=== PATIENT | female | born 1945 | race Caucasian/White ===

== ENCOUNTER 2024-06-30 07:48 | Day surgery (SDC) | payer MEDICARE, SELFPAY ==
[2024-06-30] MEDS: Tropicam./Phenyleph. (1/2.5%) 5 ML BTL OD ×3 (08:14→08:26)
[2024-06-30 08:15] VITALS: BP 148/72; PULSE 66; RESP 18; TEMP 36.3; O2SAT 97
--- NOTE | 2024-06-30 09:21 | ANES.PREOP_ITS ---
General Info Date of Service Date Performed: 06/30/24 Height: 5 ft 8 in Weight: 88.7 kg Body Mass Index (BMI): 29.7 Surgical Procedure: Operation Date: 06/30/24 10:40 Proposed Procedure Side Surgeon p Cataract Extraction with IOL Implant Right Hay Osorio MD Actual Procedure Side Surgeon p Cataract Extraction with IOL Implant Right Hay Osorio MD Pre-Op Diagnosis Post-Op Diagnosis CATARACT OD CATARACT OD Meds Allergies and Home Medications Allergies Allergy/AdvReac Type Severity Reaction Status Date / Time animal dander Allergy Intermediate Other (See Verified 06/28/24 15:04 Comment) house dust Allergy Intermediate Other (See Verified 06/28/24 15:04 Comment) mold Allergy Intermediate Other (See Verified 06/28/24 15:04 Comment) nitrofurantoin (From Allergy Intermediate Other (See Verified 06/28/24 15:04 Macrodantin) Comment) ragweed pollen Allergy Intermediate Other (See Verified 06/28/24 15:04 Comment) wool Allergy Other (See Verified 06/28/24 15:04 Comment) Home Medication ?Medication ?Instructions ?Recorded cephalexin 500 mg capsule 500 mg PO DIRECTED 06/28/24 ferrous sulfate 325 mg (65 mg 325 mg PO DAILY 06/28/24 iron) tablet (Presley-Time) losartan 50 mg tablet 50 mg PO DAILY 06/28/24 meclizine 25 mg tablet 25 mg PO DIRECTED 06/28/24 melatonin 5 mg tablet 5 mg PO HS PRN 06/28/24 omeprazole 20 mg capsule,delayed 20 mg PO DAILY 06/28/24 release simvastatin 20 mg tablet 20 mg PO QHS 06/28/24 Current Visit Medications: Current Medications Generic Name Dose Route Start Last Admin Trade Name Freq PRN Reason Stop Dose Admin Acetaminophen 1,000 mg 06/30/24 07:00 Acetaminophen 500 Mg Tab PO 07/30/24 06:59 Q4H PRN PRN Balanced Salt Solution 500 ml 06/30/24 07:00 06/30/24 08:48 Balanced Salt Soln.-Plus 500 Ml Bag OP 07/30/24 06:59 500 ml DIRECTED DAMON Administration Miscellaneous Medication 0 ml 06/30/24 07:00 06/30/24 08:54 Prednisolone 1%, Moxifloxacin 0.5%, Bromfenac 0.09% 5.6ml Btl OD 07/30/24 06:59 2 drp DIRECTED DAMON Administration Miscellaneous Medication 0 ml 06/30/24 07:00 06/30/24 08:26 Tropicam./Phenyleph. (1/2.5%) 5 Ml Btl OD 07/30/24 06:59 1 drp DIRECTED DAMON Administration Tetracaine HCl 0 ml 06/30/24 07:00 06/30/24 08:43 Tetracaine 0.5% 4 Ml Btl OD 07/30/24 06:59 4 drp DIRECTED DAMON Administration PFSH Active Problems Active Problems: Problem Status Onset Code Posterior subcapsular age-related cataract, right eye Acute H25.041 Nuclear age-related cataract, right eye Acute H25.11 Medical History Medical History Disability of walking states she can stand and pivot herself to chair or toilet Syringomyelia Recurrent UTI Polyp of colon Osteoarthritis of knee Microcytic hypochromic anemia Incontinence of urine HLD (hyperlipidemia) [place]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 states its pretty well healed up. States she has a nurses aid that comes around 1x/wk and showers her and states it was healing up well. Surgical History Surgical History Hx of tubal ligation Hx of appendectomy Hx of total knee replacement Tobacco Smoking/Tobacco Use Status: Former Tobacco Use Alcohol Alcohol Intake: never Substance Use Substance use: Never Substance use type: does not use Vital Signs and Lab Results Vital Signs Most Recent Vital Signs in EMR: Most Recent Vital Signs Temp Pulse Resp BP Pulse Ox 36.3 C L 66 18 148/72 H 97 06/30/24 08:15 06/30/24 08:15 06/30/24 08:15 06/30/24 08:15 06/30/24 08:15 Lab Results Blood Type / Crossmatch: No Data to Display Complete Blood Count: No Data to Display Complete Metabolic Panel: No Data to Display Liver Function Panel: No Data to Display Coagulation Panel: No Data to Display Cardiac Panel: No Data to Display Arterial Blood Gas: No Data to Display Venous Blood Gas: No Data to Display Pancreas Panel: No Data to Display Thyroid Panel: No Data to Display Infectious Disease: No Data to Display Blood Cultures: No Data to Display Toxicology Panel: No Data to Display Anesthesia Assessment and Plan Anesthesia History Personal History: No History of Anesthesia Complications Family History: No Family History of Anesthesia Complications Exercise Tolerance Exercise Tolerance: Metabolic Equivalents>4 Pertinent Negatives Pertinent Negatives: No Symptoms of GERD, No Major Cardiovascular Symptoms or Complaints and No Major Pulmonary Symptoms or Complaints Cardiac & Pulmonary Exam Cardiac Exam: Normal S1/S2 Heart Sounds Pulmonary Exam: Clear Bilateral Breath Sounds Implantable Cardiac Device Does patient have a Pacemaker or an ICD?: No Airway Exam Known Difficult Airway: No Mallampati Class: 2 Mouth Opening: Normal (> 3cm) Thyromental Distance: Greater than 3 cm Neck Range of Motion: Full ROM Neck Circumference: Normal Teeth Condition: Normal Dentition (Lower) and Removable Dentures/Plates Upper ASA Classification ASA Score: ASA 3 Emergency Case?: No NPO Status NPO Status: NPO Clears >2 hours, Solids >8 hours Anesthesia Plan Resuscitation Status: Full Code Anesthesia Technique: MAC Anesthesia Airway Planned: Natural Airway Monitors Used: Standard Monitors
[2024-06-30] MEDS: Tetracaine 0.5% 4 ML BTL OD (09:24)
[2024-06-30] MEDS: Povidone-Iodine Ophth 30 ML BTL (09:24)
[2024-06-30 09:27] VITALS: BMI 29.7
[2024-06-30] MEDS: Balanced Salt Soln.-PLUS 500 ML BAG OP (09:31)
[2024-06-30] MEDS: Duovisc Viscoelastic System EACH 1 EACH (09:31)
[2024-06-30] MEDS: Lidocaine 1% Pres-Free 5 ML VIAL (09:35)
[2024-06-30] MEDS: Prednisolone 1%, Moxifloxacin 0.5%, Bromfenac 0.09% 5.6ML BTL OD (09:43)
[2024-06-30 09:57] VITALS: BP 141/85; PULSE 66; RESP 16; TEMP 36.1; O2SAT 99
--- NOTE | 2024-06-30 09:57 | W.PM.DSUDISC ---
Date of service: 06/30/24 Time of Service: 09:57 Discharge Plan Disposition Patient Disposition: Home Discharge Details Attending Provider: Hay Osorio Primary Care Provider: Mak Cramer Home Meds and New Rx's Prescriptions: No Action cephalexin 500 mg capsule 500 mg PO DIRECTED ferrous sulfate [Presley-Time] 325 mg (65 mg iron) tablet 325 mg PO DAILY losartan 50 mg tablet 50 mg PO DAILY meclizine 25 mg tablet 25 mg PO DIRECTED melatonin 5 mg tablet 5 mg PO HS PRN omeprazole 20 mg capsule,delayed release(DR/EC) 20 mg PO DAILY simvastatin 20 mg tablet 20 mg PO QHS Discharge Instructions Stand Alone Forms: DSU Post-Op CataractRani (DSU) Discharge Orders Discharge Orders: Discharge Order (Routine); Ordered 06/30/24 Ordered By: Hay Osorio DS: Diagnosis Discharge Diagnosis (1) Posterior subcapsular age-related cataract, right eye: Status: Resolved (2) Nuclear age-related cataract, right eye: Status: Resolved
--- NOTE | 2024-06-30 09:58 | W.PM.OP ---
Operative Note Operative Note PRE-OP DIAGNOSIS: Nuclear/posterior subcapsular cataract, right eye POST-OP DIAGNOSIS: same PROCEDURE: Cataract extraction using phacoemulsification with intraocular lens implant, right eye SURGEON: Hay Osorio ANESTHESIA TYPE: Local By Surgeon and MAC Refer to Anesthesia Record ESTIMATED BLOOD LOSS: 0 PATHOLOGY: none sent COMPLICATIONS: None Patient was transported to: same day Patient's condition: stable Implants: Reji Clareon [id number] Indications: Progressive decreased vision due to cataract, right eye Procedure Description: CATARACT SURGERY OPERATIVE REPORT PREOPERATIVE DIAGNOSIS: Nuclear/posterior subcapsular cataract, right eye POSTOPERATIVE DIAGNOSIS: Same OPERATION: Cataract extraction using phacoemulsification with posterior chamber intraocular lens implant, right eye. IOL: IOL Testing And Regulating Technician/Model: Reji Clareon [id number] IOL Power: + 18.0 diopters IOL Serial Number: [id number] Optic Diameter: 6.0mm Haptic/Overall Diameter: 13.0mm PHACO INFO: Reji OpenExchangeurion Vision System with OZil and Active Fluidics Cumulative Dispersed Energy (CDE): 20.40 seconds SURGEON: Hay Oosrio MD, JOYCE ANESTHESIA: Monitored Anesthesia Care (MAC), with local sub-tenon's anesthetic infiltration COMPLICATIONS: None SPECIMENS: None INDICATIONS FOR PROCEDURE: The patient is a 79-year-old lady with history of diminished visual acuity in her right eye secondary to the development of nuclear/posterior subcapsular cataract. She is significant Daniel symptomatic that she desires cataract surgery and attempt to improve and maximize her vision. See office notes for detailed information. PROCEDURE: The correct surgical eye was identified and marked as the right eye and the pupil was dilated in the preoperative area using mydriatics and cycloplegics. The dilated pupil size was 7.0 mm. The patient elected to proceed without oral sedation. The patient was brought to the operating room where cardiopulmonary monitoring was instituted and surgical time-out was performed, confirming the correct operative eye and IOL power. Topical anesthesia was administered and ophthalmic povidone-iodine 5% was instilled into the conjunctival fornices. The lillian-ocular area was prepped with Betadine 10% solution and draped in the usual sterile fashion for intraocular surgery, including an aperture drape. A Tegaderm transparent film dressing was cut in half and used to cover the lashes and lid margins. Care was taken to sequester the lashes and lid margins under the Tegaderm dressing. A lid speculum was placed between the lids of the operative eye and the Reji LuxOR Revalia operating microscope was maneuvered into position. The patient had continuous wildly fluctuating eye movements which she could not control. Lashonda scissors were then used to make a conjunctival buttonhole approximately 6mm posterior to the limbus in the inferonasal quadrant. Blunt dissection was carried out to expose bare sclera, and a blunt-tipped sub-tenon?s anesthesia cannula was introduced and passed posteriorly along the globe where non-preserved plain lidocaine was injected into posterior sub-Tenon?s space. A sideport knife was used to make a paracentesis port. Intraocular phenylephrine/lidocaine was injected into the anterior chamber. The anterior chamber was then filled with viscoelastic. A keratome knife was used to construct a two--plane clear corneal tunnel extending 2.0mm into clear cornea. A flap was raised on the anterior capsule and capsulorhexis forceps were used to complete a continuous curvilinear capsulorhexis of 5.0 mm. The eye had to be fixated with a second instrument to safely perform a capsulorrhexis, but even then was still challenging due to the constant wild eye movement. Balanced salt solution was then used to perform cortical cleaving hydrodissection and nuclear hydrodelineation until the lens could be freely rotated within the capsular bag. The lens nucleus was then disassembled and removed within the capsular bag and iris plane using phacoemulsification. Residual cortical material was removed using the I/A handpiece. The posterior capsule was carefully polished to remove as much residual lens epithelial cells as safely possible. The capsular bag was then inflated and the anterior chamber deepened with cohesive viscoelastic. The lens implant described above was inserted into the capsular bag using the Reji Autonome Injector. A Kuglen hook was used to dial the IOL into position. Residual viscoelastic was then removed first from posterior to the IOL, then from the anterior chamber using the I/A handpiece. The lens implant was noted to center nicely within the capsular bag. The incisions were stromally hydrated, and the anterior chamber was reformed using BSS. Then 0.5cc of moxifloxacin 1.0mg/ml were injected into the capsular bag and anterior chamber. The incisions were checked with a Weck spear and found to be secure. Several drops of ophthalmic povidone-iodine 5% were then applied to the eye followed by two drops of combination steroid/NSAID/antibiotic solution. The drapes were removed and a clear plastic protective eye shield was placed over the eye. The patient was then returned to Same Day Surgery in stable condition. Date of Procedure: 06/30/24
--- NOTE | 2024-06-30 10:55 | W.ANESPOSTOP ---
Postoperative Evaluation Date, Time and Location Date Performed: 06/30/24 Time Performed: 10:03 Patient Location: Day Surgery Unit Vital Signs Most Recent Imported Vital Signs: Most Recent Vital Signs Temp Pulse Resp BP Pulse Ox 36.1 C L 66 16 141/85 H 99 06/30/24 09:57 06/30/24 09:57 06/30/24 09:57 06/30/24 09:57 06/30/24 09:57 Assessment Mental Status: Awake (Alert & Oriented to Patient Baseline) Airway and Respiratory Function: Patent airway with normal (patient baseline) respiratory exam Cardiovascular Function: Hemodynamically Stable Hydration Status: Adequately Hydrated Nausea & Vomiting: No Nausea or Vomiting Pain: Pt. Denies Any Pain Peripheral Nerve Block: Patient did not receive a nerve block
== END 2024-06-30 10:35 | disposition home or self-care (01) ==
LOC: SUR 07:48
PROVIDERS: PCP Family Medicine; Visit Provider Ophthalmology
PROC: (CPT 66984; principal; 2024-06-30 10:30)
DX: H25.041 Posterior subcapsular polar age-related cataract, right eye (principal); H25.11 Age-related nuclear cataract, right eye
CPT/HCPCS: 66984; 00123; V2632; J2003